=== PATIENT | female | born 2000 | race Two or more races ===

== ENCOUNTER 2024-12-24 17:21 | Emergency (ER) | payer OTHER ==
[~2024-12-24] VITALS: Ht 167.6 cm; Wt 85.3 kg
[2024-12-24 18:18] LABS: BASO % 0.3 % (0.1-1.2); EOS # 0.73 (0.04-0.54); EOS % 5.5 % (0.7-7.0); LYMPH # 1.74 (1.18-3.74); LYMPH % 13.0 % (19.3-53.1); MEAN PLATELET VOLUME 8.90 fl (9.4-12.4); MONO # 1.25 (0.24-0.82); MONO % 9.4 % (4.7-12.5); NEUT # 9.52 (1.56-6.13); NEUT % 71.2 % (34.0-71.1); RED CELL DISTRIBUTION WIDTH 13.1 % (11.6-14.4)
[2024-12-24 18:27] LABS: URINE APPEARANCE Clear; URINE BACTERIA 2677.2 uL (0.0-1933); URINE BILIRRUBIN Negative (NEGATIVE); URINE BLOOD Small; URINE COLOR Yellow; URINE EPITHELIAL CELLS 19.3 uL (0.0-38.8); URINE GLUCOSE Negative (NEGATIVE); URINE KETONE Trace (NEGATIVE); URINE LEUKOCYTE Negative; URINE NITRATE Negative; URINE PROTEIN Negative (NEGATIVE); URINE RBC 76.7 uL (0.0-20.8); URINE UROBILINOGEN 1.0 E.U./dl; URINE WBC 35.2 uL (0.0-23.2)
[2024-12-24 18:43] LABS: URINE CAST 0.43 uL (0.0-1.40)
[2024-12-24 19:10] LABS: ALT/SGPT 34.0 U/L (12-78); AST/SGOT 20.0 U/L (15-37); BILIRUBIN TOTAL 0.33 mg/dL (0.3-1.2); BUN CREA RATIO 13.0 (7.0-25.0); CREATININE SERUM 0.54 mg/dL (0.55-1.02); GFR 138.7; GLOBULINA 3.8 G/DL (2.4-3.5); GLUCOSE FASTING 99.0 mg/dL (65-100); HCG QUANTITATIVE 28351.0 mUI/mL (1-3); OSMOLALITY SERUM 276.0 MOSM/KG (275-295)
[2024-12-24 20:19] LABS: URINE YEAST FEW /hpf
[2024-12-24] MEDS ORDERED: NITROFURANTOIN100 MG PO (20:22)
== END 2024-12-24 21:08 | disposition home or self-care (01) ==
LOC: ER 17:21
PROVIDERS: General Practice
DX: O20.9 Hemorrhage in early pregnancy, unspecified (principal); Z3A.17 17 weeks gestation of pregnancy